=== PATIENT | male | born 1990 | race Asian ===

== ENCOUNTER → 2018-10-15 10:49 | Emergency (ER) | payer OTHER ==
[~2018-10-15 10:49] MED LIST: Iohexol 300* (CONTRAST) 10 ML SDV IV ONE; Piperacillin/Tazobac ADVAN(*) 3.375 GM in NS 0.9% 100 ML* 100 ML IVPB ONE
--- NOTE | 2018-10-15 11:26 | ED ---
GI/ HPI - HPI Summary HPI Summary: Pt is a 27 y/o M presenting to the ED with a chief complaint of rectal pain. He states he had a hemorrhoid removed in July of this year while he was in [place], and he was prescribed a medication that he took for about 1 week after the surgery because he thought it was not working. The pain came back about 1 month ago. - History of Current Complaint Chief Complaint: EDRectalPain Time Seen by Provider: 10/15/18 11:15 Stated Complaint: HEMORRHOIDS PER PT Hx Obtained From: Patient Onset/Duration: Started Days Ago, Still Present Timing: Constant, Lasting Days Severity: Moderate Current Severity: Severe Pain Intensity: 8 Location of Pain: Rectal Pain Characteristics: Burning Associated Signs and Symptoms: Positive: Rectal Pain, External Hemorrhoid Aggravating Factor(s): Bowel Movement Alleviating Factor(s): Nothing - Allergy/Home Medications Allergies/Adverse Reactions: Allergies Allergy/AdvReac Type Severity Reaction Status Date / Time No Known Allergies Allergy Verified 10/15/18 10:56 PMH/Surg Hx/FS Hx/Imm Hx Previously Healthy: Yes Endocrine/Hematology History: Denies: Hx Diabetes Cardiovascular History: Denies: Hx Hypertension Infectious Disease History: No Infectious Disease History: Denies: Traveled Outside the [place] in Last 30 Days - Family History Known Family History: Negative: Renal Disease - Social History Alcohol Use: None Hx Substance Use: No Substance Use Type: Reports: None Hx Tobacco Use: Yes Smoking Status (MU): Former Smoker Review of Systems Positive: Other - pain with bowel movements Positive: other - rectal pain, hemorrhoids All Other Systems Reviewed And Are Negative: Yes Physical Exam - Summary Physical Exam Summary: Appearance: The patient is well-nourished in no acute distress and in no acute pain. Skin: The skin is warm and dry and skin color reflects adequate perfusion. HEENT: The head is normocephalic and atraumatic. The pupils are equal and reactive. The conjunctivae are clear and without drainage. Nares are patent and without drainage. Mouth reveals moist mucous membranes and the throat is without erythema and exudate. The external ears are intact. The ear canals are patent and without drainage. The tympanic membranes are intact. Neck: The neck is supple with full range of motion and non-tender. There are no carotid bruits. There is no neck vein distension. Respiratory: Chest is non-tender. Lungs are clear to auscultation and breath sounds are symmetrical and equal. Cardiovascular: Heart is regular rate and rhythm. There is no murmur or rub auscultated. There is no peripheral edema and pulses are symmetrical and equal. Abdomen: The abdomen is soft and non-tender. There are normal bowel sounds heard in all four quadrants and there is no organomegaly palpated. Musculoskeletal: There is no back tenderness noted. Extremities are non-tender with full range of motion. There is good capillary refill. There is no peripheral edema or calf tenderness elicited. Neurological: Patient is alert and oriented to person, place and time. The patient has symmetrical motor strength in all four extremities. Cranial nerves are grossly intact. Deep tendon reflexes are symmetrical and equal in all four extremities. Psychiatric: The patient has an appropriate affect and does not exhibit any anxiety or depression. Rectal: R perianal induration and tenderness. No fluctuance. Triage Information Reviewed: Yes Vital Signs On Initial Exam: Initial Vitals Temp Pulse Resp BP Pulse Ox 98.2 F 72 18 130/98 99 10/15/18 10:54 10/15/18 10:54 10/15/18 10:54 10/15/18 10:54 10/15/18 10:54 Vital Signs Reviewed: Yes Diagnostics - Vital Signs Vital Signs Temp Pulse Resp BP Pulse Ox 10/15/18 10:54 98.2 F 72 18 130/98 99 - Laboratory Result Diagrams: 10/15/18 11:54 10/15/18 11:54 Lab Statement: Any lab studies that have been ordered have been reviewed, and results considered in the medical decision making process. - CT Pelvis CT CT Interpretation Completed By: Radiologist Summary of CT Findings: 1. Right perianal abscess. 2. Right inguinal hernia. ED physician has reviewed this report. GIGU Course/Dx - Course Course Of Treatment: Mr. Hardy had some hemorrhoids removed about 3 months ago in [place]. A month ago he came here and he began to have pain again. He has been using a suppository that he was given in [place]. He stopped using about a week ago because it wasn't helping. The pain has gotten worse in the last week. He was nontoxic in appearance with stable vital signs. He clearly had an area of cellulitis in the perianal area with a lot of swelling he felt indurated to me and I couldn't really feel any area of fluctuance. He was afebrile and labs were okay. He was given some IV Zosyn while a CT scan was obtained. The CT scan showed a very small thin likely abscess area. I could not clearly delineate where this abscess was secondary to the swelling and induration. I will continue Augmentin for him and get him follow-up first of the week with the surgeons. He will likely need to be drained at some point. - Diagnoses Provider Diagnoses: Cellulitis Discharge - Sign-Out/Discharge Documenting (check all that apply): Patient Departure Patient Received Moderate/Deep Sedation with Procedure: No - Discharge Plan Condition: Stable Disposition: HOME Prescriptions: Amoxicillin/Clavulanate TAB* [Augmentin TAB 875*] 875 mg PO BID #20 tab traMADol TAB* [Ultram*] 50 mg PO Q6HR PRN #20 tab MDD 4 PRN Reason: Pain Referrals: Damian Gar MD [Medical Doctor] - Additional Instructions: Please take your prescribed medications as instructed. Follow up with Dr. Gar within the next week. Return to the emergency department with any new or worsening symptoms. - Billing Disposition and Condition Condition: STABLE Disposition: Home - Attestation Statements Document Initiated by Scribe: Yes Documenting Scribe: Rupal Peters Provider For Whom Lor is Documenting (Include Credential): Gildardo Alba MD. Scribe Attestation: Rupal Bryan scribed for Gildardo Alba MD. on 10/15/18 at 1514. Scribe Documentation Reviewed: Yes Provider Attestation: The documentation as recorded by the Rupal islas accurately reflects the service I personally performed and the decisions made by me, Gildardo Alba MD. Status of Scribe Document: Viewed
[2018-10-15 12:14] LABS: ABS Eosinophils 0.1 10^3/ul (0-0.6); ABS Lymphocytes 1.4 10^3/ul (1.0-4.8); ABS Monocytes 0.5 10^3/ul (0-0.8); ABS Neutrophils 6.7 10^3/ul (1.5-7.7); Eosinophil % 1.1 %; Hematocrit 43 % (42-52); Hemoglobin 14.7 g/dL (14.0-18.0); Lymphocyte % 15.5 %; Mean Corpuscular HGB Conc 34 g/dL (31-36); Mean Corpuscular Hemoglobin 29 pg (27-31); Mean Corpuscular Volume 85 fL (80-94); Mean Platelet Volume 8.8 fL (7.4-10.4); Nucleated Red Blood Cells % 0.1; Platelet Count 172 10^3/uL (150-450); Red Blood Count 5.03 10^6 /uL (4.18-5.48); Red Cell Distribution Width 12 % (10.5-15); White Blood Count 8.7 10^3/uL (3.5-10.8)
[2018-10-15 12:33] LABS: Albumin 4.8 g/dL (3.2-5.2); Albumin/Globulin Ratio 1.8 (1-3); BUN/Creatinine Ratio 12.9 (8-20); Calcium 9.2 mg/dL (8.6-10.3); EGFR African American 116.2 (>60); EGFR Non-African American 96.1 (>60); Globulin 2.7 g/dL (2-4); Total Protein 7.5 g/dL (6.4-8.9)
[2018-10-15 15:11] VITALS: BP 138/83
== END | disposition home or self-care (01) ==
LOC: ED 10:49
DX: L03.90 Cellulitis, unspecified (principal); K61.0 Anal abscess; K40.90 Unilateral inguinal hernia, without obstruction or gangrene, not specified as recurrent; Z87.891 Personal history of nicotine dependence
CPT/HCPCS: 36415; 72193; 80053; 83605; 85025; 87040; 96365; 99282; J2543; Q9967

== ENCOUNTER → 2018-11-30 08:45 | Day surgery (SDC) | payer OTHER ==
[~2018-11-30 08:45] MED LIST changes: +Bacitracin OINTMENT* 0.5% 0.5 oz TUBE ONE; +Buffered Lidocaine 1% SYRIN* 1 ML/SYRINGE INTRADERM ONE; +Bupivacaine 0.25% SDV PF* 10 ML VIAL INJ ONE; +DiMENhydriNATE IV* 50 MG/ML VIAL IV PUSH PRN; +Famotidine IV* 10 MG/ML 2 ML (20 mg) IV ONE; +Famotidine IV* 10 MG/ML 2 ML (20 mg) ONE; -Iohexol 300* (CONTRAST) 10 ML SDV IV ONE; +KETAMINE HCL* 50 MG/ML 10 ML VIAL ONE; +Ketorolac INJ* 30 MG/ML 1 ML VIAL ONE; +Lactated Ringers 1000 ML Bag* 1,000 ML IV SCH; +Lidocaine 2% JELLY* 20 ML (for OR use) ONE; +Lidocaine 2% PF * 5 ML VIAL ONE; +Midazolam* 1 MG/ML 5 ML VIAL (5 MG) ONE; +Morphine 4 MG/ML VIAL (1 ml) 4 MG/ML VIAL IV PRN; +Naloxone* 0.4 MG/ML 1 ML VIAL IV PRN; +PROCHLORPERAZINE INJ 5 MG/ML 2 ML VIAL IV PRN; -Piperacillin/Tazobac ADVAN(*) 3.375 GM in NS 0.9% 100 ML* 100 ML IVPB ONE; +Propofol* 10 MG/ML 20 ML BTL ONE; +Scopolamine 1.5 mg* PATCH TRANSDERM PRN; +Scopolamine PATCH Remove* 1 NOTE MISC PATCH OFF ONE; +ceFOXitin 2 GM IVPREMIX* 2 GM/50 ML BAG ONE; +fentaNYL* 50 MCG/ML 2 ML VIAL (100 MCG VIAL) IV PRN; +fentaNYL* 50 MCG/ML 2 ML VIAL (100 MCG VIAL) ONE; +oxyCODONE/Acetamin 5/325 MG* TAB PO PRN
--- NOTE | 2018-11-30 12:01 | OP ---
DATE OF OPERATION: 11/30/18 - [facility] DATE OF : 86 SURGEON: Jimmy Moore MD HARNESS TIER: None. PRE-OP DIAGNOSIS: Anal fistula. POST-OP DIAGNOSIS: Anal fistula. OPERATIVE PROCEDURE: Anal fistulotomy. 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 Risks of surgery including, but not limited to bleeding, infection, temporary or permanent incontinence to gas or stool, persistent fistula explained to the patient by Dr. Gar and myself on separate occasions. He seemed to understand , agreed to the procedure, and all questions were answered. The use of a director of enterprise strategy was used to assist with explanation. DESCRIPTION OF PROCEDURE: In the operating room, in the prone jackknife position with the buttock taped apart, and sedation given by the anesthesiologist, time-out was performed indicating correct patient, correct procedure. The area was prepped with Betadine and draped in sterile fashion. An obvious fistulous tract was noted on the right side, heading from a medial to anterior position. Probe was easily passed through the fistulous tract. Skin was anesthetized with 0.5% Marcaine plain. The skin was opened from the periphery going towards the middle. The anorectal opening was very superficial and not deep within the rectum. Only a small amount of muscle was exposed and overlying the fistulous tract, about 2 mm. The entire tract was cleaned with Bovie cautery. Small amount of muscle was opened to expose the entire tract. Hemostasis was achieved with Bovie cautery. EBL was minimal. Hemostasis was intact. Antibiotic ointment and Surgicel were empirically placed in the now open fistulous tract. I was able to palpate a significant amount of sphincter musculature deep to this. Anoscopy/evaluation of the distal rectum was done with retractors prior to the fistula being opened. The patient tolerated the procedure well. He was taken to Recovery in stable condition. [id number]/[facility] #: [id number] [facility]
[2018-11-30 13:18] VITALS: BP 130/80
== END | disposition home or self-care (01) ==
LOC: OR 08:45
PROVIDERS: ATTEND Surgery
DX: K60.3 Anal fistula (principal)
CPT/HCPCS: A9270-GY; J0694; J1885; J2250; J2704; J3010; J3490